=== PATIENT | female | born 1955 | race Caucasian/White ===

== ENCOUNTER → 2016-08-11 | Outpatient (CLI) | payer BC ==
[~2016-08-11] MED LIST: ACET-1256 PO; CLTP PO; CMD2 PO; ERYOPO OPL; PENT400T PO; PENT400T2 PO; PRED20TA PO; VITA400C15 PO; WARF2TAB8 PO
--- NOTE | 2016-08-11 16:55 | MAMMOGRAPHY REPORT ---
BILATERAL DIGITAL SCREENING MAMMOGRAM TOMOSYNTHESIS WITH CAD: 08/11/2016 CLINICAL HISTORY: Routine screening. Patient has no complaints. TECHNIQUE: Breast tomosynthesis in addition to standard 2D mammography was performed. Current study was also evaluated with a Computer Aided Detection (CAD) system. COMPARISON: Comparison is made to exams dated: 08/06/2015 mammogram, 07/21/2015 mammogram, 5 mammogram, 07/21/2015 ultrasound, 07/08/2014 mammogram, and 07/06/2013 mammogram - [facility]. BREAST COMPOSITION: There are scattered areas of fibroglandular density in both breasts. FINDINGS: There is a stable metallic biopsy marker in the upper outer anterior left breast. No new suspicious mass, architectural distortion or cluster of microcalcifications is seen. IMPRESSION: ACR BI-RADS CATEGORY 1: NEGATIVE There is no mammographic evidence of malignancy. A 1 year screening mammogram is recommended. The p atient will receive written notification of the results. Approximately 10% of breast cancers are not detected with mammography. A negative mammographic repor t should not delay biopsy if a clinically suggestive mass is present. Wen Dougherty M.D. ay/:08/11/2016 16:00:20 Fruit Or Nut Picker: Poonam ROSS(David)(Zachery)(BD), [facility] letter sent: Normal 1/2 BI-RADS Code: ACR BI-RADS Category 1: Negative
== END | disposition home or self-care (01) ==
LOC: C.MAMM 12:05
PROVIDERS: ATTEND Obstetrics & Gynecology
DX: Z12.31 Encounter for screening mammogram for malignant neoplasm of breast (principal)

== ENCOUNTER → 2016-09-16 | Outpatient (CLI) | payer BC | END | disposition home or self-care (01) | LOC: C.PAPS 09:59 | PROVIDERS: ATTEND Obstetrics & Gynecology | DX: Z01.419 Encounter for gynecological examination (general) (routine) without abnormal findings (principal); Z78.0 Asymptomatic menopausal state ==

== ENCOUNTER → 2017-03-01 | Outpatient (CLI) | payer BC ==
[~2017-03-01] MED LIST changes: -VITA400C15 PO
== END | disposition home or self-care (01) ==
LOC: C.PATHSPEC 17:32
PROVIDERS: ATTEND Plastic Surgery
DX: L82.0 Inflamed seborrheic keratosis (principal)

== ENCOUNTER 2017-03-05 19:01 | Emergency (ER) | payer BC ==
[~2017-03-05] VITALS: Ht 168.9 cm; Wt 77.4 kg
[~2017-03-05 19:01] MED LIST changes: -ERYOPO OPL; -PENT400T2 PO; -PRED20TA PO
[2017-03-05 19:09] VITALS: TEMP 36.5; Ht 168.9 cm; Wt 77.4 kg
[2017-03-05] MEDS ORDERED: PROPARACAINE HCL 0.5% OP SOLN 15 ML BTL OP STA (19:44)
[2017-03-05] MEDS ORDERED: PENT400T2 PO (19:45)
[2017-03-05] MEDS ORDERED: WARF2TAB8 PO (19:45)
--- NOTE | 2017-03-05 19:48 | EMERGENCY ROOM VISIT NOTE ---
History Report prepared by Agnieszka: Germaine Melendez Under the Supervision of: Dr. Ghassan Negrete M.D. First contact with patient: 19:13 Chief Complaint: EYE PAIN Stated Complaint: SORE, WEEPING LEFT EYE History of Present Illness The patient is a 61 year old female who presents to the Emergency Room with complaints of worsening left eye pain starting five days ago. Per Dr. Gonzalez, the patient had a shaved biopsy of a lesion on the side of her nose done. She reports that it was a short procedure and that it went well. She states that the patient came back in twice because she believed that she was having an allergic reaction to the Bacitracin. Dr. Gonzalez states that she thought it was mild ecchymosis from the procedure since the patient is on Coumadin, but by the second visit, she thought that she may be allergic to the ointment. She states that she put the patient on Benadryl and Keflex. The patient states that she has been taking everything she was given and it hasn't offered relief. She reports that when she iced her eye she has some relief. The patient complains that it is swollen, expanding erythema, itchiness, and is weeping. She notes that she seems to have blisters that are causing some of the weeping. She currently rates her pain as a 10/10 in severity. She reports that is causing her glasses to become crusty. The patient denies fevers, chills, nausea, vomiting, and any other rashes. Source of History: patient Onset: five days ago Position: eye (left) Symptom Intensity: 10/10 Timing: worsening Modifying Factors (Relieving): ice Associated Symptoms: No fevers, No chills, No nausea, No vomiting, No rash Note: The patient complains of her eye being swollen, erythema, itchiness, and weeping. Review of Systems See HPI for pertinent positives and negatives. A total of ten systems were reviewed and were otherwise negative. Family History No pertinent family history Social History Smoking Status: Never Smoker Drug Use: none Marital Status: Housing Status: lives with significant other Occupation Status: employed Current/Historical Medications Scheduled Erythromycin Opth (Erythromycin Opth), 1 APPLN OPL QID Pentoxifylline (Trental), 400 MG PO TIDM Prednisone (Prednisone), 0 PO DAILY Warfarin Sod (Jantoven), 4 MG PO 3XWK Warfarin Sod (Jantoven), 3 MG PO 4XWK Allergies Coded Allergies: Codeine (Verified Allergy, Unknown, 08/29/09) Bacitracin (Unverified Adverse Reaction, Severe, EYE SWELLING, 03/05/17) Physical Exam Vital Signs Date Time Temp Pulse Resp B/P (MAP) Pulse Ox O2 Delivery O2 Flow Rate FiO2 03/05/17 22:43 75 18 123/91 94 03/05/17 19:09 36.5 88 19 140/94 94 Room Air Physical Exam GENERAL: Awake, alert, well-appearing, in no distress HENT: Normocephalic, atraumatic. Oropharynx unremarkable. EYES: PERRL, Moderate periorbital edema and mild erythema without warmth. Left nasal excision site with slight yellow serous weeping. Slight induration left cheek without fluctuance. No crepitus. Extra ocular movements are intact. Mild conjunctival injection with chemosis. Sclera non-icteric. Anterior chamber clear , slight punctate fluorescene uptake on cornea. NECK: Supple. No nuchal rigidity. FROM. No JVD. RESPIRATORY: Clear to auscultation. CARDIAC: Regular rate, normal rhythm. Extremities warm and well perfused. Pulses equal. ABDOMEN: Soft, non-distended. No tenderness to palpation. No rebound or guarding. No masses. RECTAL: Deferred. MUSCULOSKELETAL: Chest examination reveals no tenderness. The back is symmetrical on inspection without obvious abnormality. There is no CVA tenderness to palpation. No joint edema. LOWER EXTREMITIES: Calves are equal size bilaterally and non-tender. No edema. No discoloration. NEURO: Normal sensorium. No sensory or motor deficits noted. SKIN: No rash or jaundice noted. Medical Decision & Procedures Laboratory Results 03/05/17 20:11 Red Blood Count 4.52, Mean Corpuscular Volume 91.8, Mean Corpuscular Hemoglobin 31.0, Mean Corpuscular Hemoglobin Concent 33.7, Mean Platelet Volume 11.5, Neutrophils (%) (Auto) 57.9, Lymphocytes (%) (Auto) 29.0, Monocytes (%) (Auto) 9.5, Eosinophils (%) (Auto) 3.4, Basophils (%) (Auto) 0.1, Neutrophils # (Auto) 4.03, Lymphocytes # (Auto) 2.02, Monocytes # (Auto) 0.66, Eosinophils # (Auto) 0.24, Basophils # (Auto) 0.01 03/05/17 20:11 Test 03/05/17 20:11 White Blood Count 6.97 K/uL (4.8-10.8) Red Blood Count 4.52 M/uL (4.2-5.4) Hemoglobin 14.0 g/dL (12.0-16.0) Hematocrit 41.5 % (37-47) Mean Corpuscular Volume 91.8 fL (80-100) Mean Corpuscular Hemoglobin 31.0 pg (25-34) Mean Corpuscular Hemoglobin Concent 33.7 g/dl (32-36) Platelet Count 187 K/uL (130-400) Mean Platelet Volume 11.5 fL (7.4-10.4) Neutrophils (%) (Auto) 57.9 % Lymphocytes (%) (Auto) 29.0 % Monocytes (%) (Auto) 9.5 % Eosinophils (%) (Auto) 3.4 % Basophils (%) (Auto) 0.1 % Neutrophils # (Auto) 4.03 K/uL (1.4-6.5) Lymphocytes # (Auto) 2.02 K/uL (1.2-3.4) Monocytes # (Auto) 0.66 K/uL (0.11-0.59) Eosinophils # (Auto) 0.24 K/uL (0-0.5) Basophils # (Auto) 0.01 K/uL (0-0.2) RDW Standard Deviation 44.9 fL (36.4-46.3) RDW Coefficient of Variation 13.4 % (11.5-14.5) Immature Granulocyte % (Auto) 0.1 % Immature Granulocyte # (Auto) 0.01 K/uL (0.00-0.02) Prothrombin Time 35.0 SECONDS (9.0-12.0) Prothromb Time International Ratio 3.1 (0.9-1.1) Anion Gap 6.0 mmol/L (3-11) Est Creatinine Clear Calc Drug Dose 47.6 ml/min Estimated GFR () 50.9 Estimated GFR (Non- 43.9 BUN/Creatinine Ratio 21.4 (10-20) Calcium Level 9.1 mg/dl (8.5-10.1) Chemistry Specimen Hemolysis Laboratory results reviewed by me Medications Administered Medications (Trade) Dose Ordered Sig/Senia Route Start Time Stop Time Status Last Admin Dose Admin Diphenhydramine HCl (Benadryl Cap) 25 mg NOW ONCE PO 03/05/17 19:45 03/05/17 19:46 DC 03/05/17 19:58 25 MG Dexamethasone (Decadron Tab) 10 mg ONE STAT PO 03/05/17 21:04 03/05/17 21:05 DC 03/05/17 21:10 10 MG Erythromycin (Erythromycin Oph Oint) 1 appln NOW ONCE OP 03/05/17 22:00 03/05/17 22:01 DC 03/05/17 22:43 1 APPLN Procedure Slit Lamp Examination Indication:Conjunctivitis The left eye was prepped with topical proparacaine. Slit lamp examination was performed in the standard fashion. Anterior chamber clear. Scleral injection is present. Mild Sirius discharge present. Fluorescein examination performed and revealed that the cornea appeared with a few pupate areas of fluorescence uptake. Otherwise no corneal abrasion. No foreign bodies noted. Negative Aryan sign. The patient tolerated the procedure well without complication. ED Course 1919: The patient was evaluated in room C3. A complete history and physical exam was performed. 1943: Ordered Proparacaine HCl 2 drops OP. 1944: Ordered Benadryl Cap 25 mg PO. 2103: Ordered Decadron Tab 10 mg PO. 2199: Ordered Erythromycin 1 appln OP. 2253: I reevaluated the patient. Discussed results and discharge instructions: She verbalized understanding and agreement. The patient is ready for discharge. Medical Decision I reviewed the patient's past medical history, medications, and the nursing notes as described above. Differential diagnoses include allergic reaction vs periorbital cellulitis, orbital cellulitis. Patient is a 61-year-old woman with a past medical history of factor V Leiden on Coumadin presents emergency Department with left eye swelling in the setting of a recent excision of a benign keratosis on the left side of her nose adjacent to her left eye at plastic surgery, Dr. Gonzalez, per history of present illness. Arrival the patient is uncomfortable but in no acute distress. Afebrile with stable vital signs. Moderate left periorbital edema without crepitus or warmth. Patient does have some mild yellow serous drainage near the site of the excision was mild conjunctival injection and chemosis. Extraocular muscles are intact patient denies pain with eye movements. She was put on Keflex by Dr. Gonzalez however has not shown improvement over the course of 24 hours. Labs were drawn and WBC were normal within normal limits and therefore I feel a worsening cellulitis is unlikely. Patient was given Decadron in the ED and did show improvement in edema during observation. Slit lamp exam showed minimal punctate uptake of fluorescein consistent with minor corneal abrasion. She was given erythromycin ointment. I discussed with patient options for admission for observation however the patient preferred discharge considering her labs were reassuring. Otherwise patient's INR was markedly elevated to 3.1 and expresses understanding of managing this as she usually would just increase her spinach intake. Creatinine was marginally elevated consistent with the patient mildly dry, will encourage hydration and repeat labs with her PCP. I discussed with the patient return instructions particularly for fevers chills, pain with eye movements. Otherwise the patient will follow-up with Dr. Smith, ophthalmology, her anticoagulation clinic, and her PCP. Patient agreeable and was discharged per instructions. Impression Primary Impression: Periorbital edema of left eye Additional Impressions: Cornea abrasion Acute allergic conjunctivitis of left eye Scribe Attestation The scribe's documentation has been prepared under my direction and personally reviewed by me in its entirety. I confirm that the note above accurately reflects all work, treatment, procedures, and medical decision making performed by me. Departure Information Dispostion Home / Self-Care Prescriptions Erythromycin Opth (ERYTHROMYCIN OPTH) 12 Appln/3.5 Gm Oint 1 APPLN OPL QID for 7 Days, #1 TUBE Prov: Ghassan Negrete M.D. 03/05/17 Prednisone (Prednisone) 20 Mg Tab 0 PO DAILY for 5 Days, #15 TAB 3 TABS DAILY FOR 2 DAYS, THEN 2 TABS DAILY FOR 2 DAYS, THEN 1 TAB DAILY FOR 2 DAYS, THEN 1/2 TAB DAILY FOR 2 DAYS. Prov: Ghassan Negrete M.D. 03/05/17 Referrals Noble Garcia M.D. (PCP) Gómez Chandra D.O. Forms HOME CARE DOCUMENTATION FORM, IMPORTANT VISIT INFORMATION, WORK / SCHOOL INSTRUCTIONS Patient Instructions ED Allergic Conjunctivitis, ED Allergic Reaction Local Other, ED Eye Injury Corneal Abrasion, My [facility] Additional Instructions Please follow up with your plastic surgeon on Tuesday as planned, ophthalmology for reevaluation for your corneal abrasion, as well as with your coagulation clinic to repeat your INR, as well as with your physician primary care physician in the next 1-3 days to repeat your kidney labs which today showed you were slightly dehydrated. Otherwise, your exam and lab results did not show signs of an emergent condition at this time. If your symptoms do not improve or worsen me fill the prescription for prednisone as directed. Take Benadryl as needed for itching. Continue your antibiotic as prescribed by your surgeon. Erythromycin ointment for the scratch on your cornea as directed. Return to the emergency department for worsening symptoms such as fevers, swelling, and pain behind your eye as described in the accompanying instructions. Problem Qualifiers
[2017-03-05 20:25] LABS: BASO % 0.1 %; BASO ABS # 0.01 K/uL (0-0.2); COMPLETE YES; EOS % 3.4 %; HEMATOCRIT 41.5 % (37-47); IG% 0.1 %; LYMPH ABS # 2.02 K/uL (1.2-3.4); MEAN CELL VOLUME 91.8 fL (80-100); MEAN CORPUSCULAR HGB CONC 33.7 g/dl (32-36); MEAN PLATELET VOLUME 11.5 fL (7.4-10.4); MONO % 9.5 %; NEUT % 57.9 %; PLATELET COUNT 187 K/uL (130-400); RED BLOOD COUNT 4.52 M/uL (4.2-5.4); WHITE BLOOD COUNT 6.97 K/uL (4.8-10.8)
[2017-03-05] MEDS ORDERED: DEXAMETHASONE 1 MG TAB PO ONE (20:30)
[2017-03-05 20:42] LABS: INR 3.1 (0.9-1.1)
[2017-03-05 20:49] LABS: BUN/CREATININE RATIO 21.4 (10-20); CALCIUM 9.1 mg/dl (8.5-10.1); CREATININE 1.3 mg/dl (0.60-1.20); POTASSIUM 3.8 mmol/L (3.5-5.1)
[2017-03-05] MEDS ORDERED: DEXAMETHASONE 4 MG TAB PO STA (21:04)
[2017-03-05] MEDS ORDERED: ERYTHROMYCIN OP OINT 5 MG/GM 3.5 GM TUBE OP ONE (22:00)
[2017-03-05] MEDS ORDERED: ERYOPO OPL (22:02)
[2017-03-05] MEDS ORDERED: PRED20TA PO (22:02)
[2017-03-05 22:43] VITALS: BP 123/91; PULSE 75; O2SAT 94
--- NOTE | 2017-03-06 04:01 | CONSULTATION REPORT ---
DATE OF CONSULTATION: 03/05/2017 Marialuisa contacted me via my answering service [employer] around 6:30 regarding her left eye swelling. She stated that she had begun Benadryl and Keflex as recommended as well as the Naphcon eye drops. Intermittently, she has had improvement and worsening of the swelling throughout the day. I asked her to come to the Emergency Department for evaluation and offered to meet her there. She was seen this evening in conjunction with Dr. Negrete from the Emergency Department. She reports that her symptoms appear to be the same, but she is still having some yellow crusting of the eye area. She does not appear to be having significant complaints regarding the quality of her vision other than stating it is somewhat blurry. PHYSICAL EXAMINATION: Shows that she is afebrile with stable vital signs. There is periorbital edema and erythema on the left. Biopsy site appears to be healing well. There is ecchymosis and scleral injection on the left. Extraocular movements are intact. White blood cell count is 6.97. INR 3.1. PLAN: Slit lamp examination to be performed by the Emergency Department physician. I will defer further management to him at this time, but he is recommending treating with oral steroids and continuing Keflex. The patient does have a followup appointment scheduled for 03/07/2017 at 2:40 p.m. She was advised to keep this appointment unless she notes substantial improvement, in which case she may contact me via telephone. BILL
== END 2017-03-05 22:47 | disposition home or self-care (01) ==
LOC: C.EDB 19:03 → C.EDC 22:47
DX: H05.222 Edema of left orbit (principal); S05.02XA Injury of conjunctiva and corneal abrasion without foreign body, left eye, initial encounter; X58.XXXA Exposure to other specified factors, initial encounter; H10.12 Acute atopic conjunctivitis, left eye; D68.51 Activated protein C resistance; Z79.01 Long term (current) use of anticoagulants

== ENCOUNTER → 2017-06-03 | Outpatient (CLI) | payer BC ==
[~2017-06-03] MED LIST changes: -ACET-1256 PO; -CLTP PO; -CMD2 PO; -PENT400T PO; +PENT400T2 PO
--- NOTE | 2017-06-03 15:38 | MAMMOGRAPHY REPORT ---
UNILATERAL LEFT DIGITAL DIAGNOSTIC MAMMOGRAM TOMOSYNTHESIS WITH CAD AND TARGETED LEFT ULTRASOUND: 04/2017 CLINICAL HISTORY: The patient reports a fluctuating lump and associated itchiness in the left breast for approximately 5 weeks. She cannot clearly feel the lump today. She denies any associated skin e rythema or pain. TECHNIQUE: Breast tomosynthesis in addition to standard 2D mammography was performed. Current study was also evaluated with a Computer Aided Detection (CAD) system. Left CC and MLO 2-D and tomosynthes is images were obtained. COMPARISON: Comparison is made to exams dated: 08/11/2016 mammogram, 08/06/2015 ultrasound biopsy, 07/25 mammogram, 07/21/2015 ultrasound, 07/21/2015 mammogram, and 07/09/2015 mammogram - [facility]. BREAST COMPOSITION: There are scattered areas of fibroglandular density in the left breast. FINDINGS: A triangle marker casas the site of the itchy lump pointed out by the patient in the left u pper outer quadrant. There are no suspicious masses, calcifications, or areas of architectural disto rtion noted within the left breast. There has been no significant interval change compared to prior exams. A biopsy marker clip is again noted within the left lateral anterior breast. A linear scar m arker denotes a scar on the left inferior breast. Targeted ultrasound was performed of the area of the palpable left breast lump. The patient cannot c learly feel the lump today although pointed to the general region in the left 3:00 breast, centered a round 6 cm from the nipple. Sonographically normal tissue is seen in this region, without evidence o f a mass or other suspicious sonographic abnormality seen. No intradermal mass is evident. IMPRESSION: ACR BI-RADS CATEGORY 2: BENIGN, TARGETED ULTRASOUND ACR BI-RADS CATEGORY 2: BENIGN No suspicious mammographic or sonographic abnormality at the site of the itchy left breast lump point ed out by the patient. There is no mammographic or targeted sonographic evidence of malignancy. Rec ommend clinical follow-up, and recommend routine bilateral screening mammograms due in July 2017. The patient has been verbally notified of the results. Approximately 10% of breast cancers are not detected with mammography. A negative mammographic report should not delay biopsy if a clinically suggestive mass is present. Erin Butler M.D. ah/:06/03/2017 14:39:31 Lens Polisher Hand: Xiomara Reece, [facility] letter sent: Normal / BI-RADS Code: ACR BI-RADS Category 2: Benign Ultrasound BI-RADS: ACR BI-RADS Category 2: Benign
== END | disposition home or self-care (01) ==
LOC: C.MAMM 13:49
PROVIDERS: ATTEND Physician Assistant Medical
DX: N63.20 Unspecified lump in the left breast, unspecified quadrant (principal)

== ENCOUNTER → 2017-06-25 | Outpatient (CLI) | payer BC ==
[~2017-06-25] MED LIST changes: -PENT400T2 PO
[2017-06-25 08:12] LABS: HEMATOCRIT 43.9 % (37-47); MEAN CELL VOLUME 91.8 fL (80-100); MEAN CORPUSCULAR HEMOGLOBIN 31.8 pg (25-34); MEAN CORPUSCULAR HGB CONC 34.6 g/dl (32-36); MEAN PLATELET VOLUME 11.8 fL (7.4-10.4); PLATELET COUNT 191 K/uL (130-400); RED BLOOD COUNT 4.78 M/uL (4.2-5.4)
[2017-06-25 08:47] LABS: ALT/SGPT 18 U/L (12-78); AST/SGOT 13 U/L (15-37); BLOOD UREA NITROGEN 23 mg/dl (7-18); BUN/CREATININE RATIO 27.8 (10-20); CALCIUM 8.9 mg/dl (8.5-10.1); CARBON DIOXIDE 29 mmol/L (21-32); CHLORIDE 105 mmol/L (98-107); CHOLESTEROL 221 mg/dl (0-200); CREATININE 0.81 mg/dl (0.60-1.20); GLUCOSE 95 mg/dl (70-99); POTASSIUM 4.2 mmol/L (3.5-5.1); SODIUM 140 mmol/L (136-145); TRIGLYCERIDES 81 mg/dl (0-150); VERY LOW DENSITY LIPOPROT CALC 16 mg/dl
[2017-06-25 08:58] LABS: ALB/GLOB RATIO 1.3 (0.9-2); ALKALINE PHOSPHATASE 66 U/L (45-117); CHOLESTEROL/HDL RATIO 3.2; HDL CHOLESTEROL 70 mg/dl; LDL CHOLESTEROL CALCULATED 135 mg/dl; THYROID STIMULATING HORMONE 0.737 uIu/ml (0.300-4.500)
== END | disposition home or self-care (01) ==
LOC: C.LAB 07:25
PROVIDERS: ATTEND Physician Assistant Medical
DX: Z11.59 Encounter for screening for other viral diseases (principal); E78.5 Hyperlipidemia, unspecified; D68.59 Other primary thrombophilia

== ENCOUNTER → 2017-10-31 | Outpatient (CLI) | payer OTHER ==
--- NOTE | 2017-11-01 07:41 | MAMMOGRAPHY REPORT ---
BILATERAL DIGITAL SCREENING MAMMOGRAM TOMOSYNTHESIS WITH CAD: 10/31/2017 CLINICAL HISTORY: Routine screening. Patient has no complaints. TECHNIQUE: Breast tomosynthesis in addition to standard 2D mammography was performed. Current study was also evaluated with a Computer Aided Detection (CAD) system. COMPARISON: Comparison is made to exams dated: 06/03/2017 mammogram, 08/11/2016 mammogram, 07/08/2014 mammogram, 07/06/2013 mammogram, 03/15/2012 mammogram, and 03/10/2011 mammogram - [facility]. BREAST COMPOSITION: There are scattered areas of fibroglandular density in both breasts. FINDINGS: There is a stable ribbon-shaped biopsy marker clip in the upper outer anterior left breast. No new suspicious mass, architectural distortion or cluster of microcalcifications is seen. IMPRESSION: ACR BI-RADS CATEGORY 1: NEGATIVE There is no mammographic evidence of malignancy. A 1 year screening mammogram is recommended. The pa tient will receive written notification of the results. Approximately 10% of breast cancers are not detected with mammography. A negative mammographic report should not delay biopsy if a clinically suggestive mass is present. Wen Dougherty M.D. ay/:10/31/2017 14:43:22 White Lead Grinder: Smita ROSS(David)(M), [facility] letter sent: Normal 1/2 BI-RADS Code: ACR BI-RADS Category 1: Negative
== END | disposition home or self-care (01) ==
LOC: C.MAMM 14:01
PROVIDERS: ATTEND Obstetrics & Gynecology
DX: Z12.31 Encounter for screening mammogram for malignant neoplasm of breast (principal)